=== PATIENT | female | born 2005 ===

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

== ENCOUNTER 2024-10-17 21:32 | Emergency (ER) | payer OTHER, SELFPAY ==
[2024-10-17 22:16] VITALS: BP 128/81; PULSE 125; RESP 20; TEMP 38.1; O2SAT 99; BMI 41.2
[2024-10-17 22:33] LABS: MANUAL DIFF FLAG NO
[2024-10-17 22:34] LABS: Basophils Percent Auto 0.1 % (0-2); Eosinophils Percent Auto 0.3 % (0-4); Hematocrit 43.1 % (37.0-47.0); Hemoglobin 14.1 g/dl (12.0-16.0); Imm Gran Abs Auto 0.03 X10*3/uL (0.00-0.03); Imm Gran Pct Auto 0.4 % (0.0-0.4); Lymphocytes Percent Auto 12.4 % (20-40); Mean Corpuscular HGB Conc 32.7 g/dl (31.0-35.0); Mean Corpuscular Hemoglobin 26.1 pg (27.0-33.0); Mean Corpuscular Volume 79.8 fL (80.0-98.0); Mean Platelet Volume 9.2 fL (9.4-12.3); Monocytes Absolute Auto 0.6 X10*3/uL (0.1-1.2); Monocytes Percent Auto 7.8 % (2-11); Neutrophils Absolute Auto 6.1 x10*3/uL (2.0-8.3); Platelet Count 276 X10*3/uL (160-400); Red Cell Distribution Width 13.2 % (11.0-16.0); White Blood Count 7.7 X10*3/uL (4.8-10.8)
[2024-10-17 22:51] LABS: Alanine Aminotransferase 30 U/L (0-31); Albumin Level 4.5 g/dL (3.5-5.0); Alkaline Phosphatase 68 U/L (39-117); Anion Gap 15 (12-20); Aspartate Amino Transferase 15 U/L (5-31); Bilirubin Total 0.5 mg/dL (0.0-1.0); Blood Urea Nitrogen 13 mg/dL (9-16); Calcium 8.9 mg/dL (8.4-10.2); Carbon Dioxide 23 mmol/L (22-29); Chloride 104 mmol/L (96-108); Creatinine Clr Calc Pharmacy 127.2; Estimated Glomerular Filt Rate > 60; Glucose Random 112 mg/dL (60-115); Lipase 9 U/L (8-78); Potassium 3.7 mmol/L (3.3-5.1); Sodium 138 mmol/L (135-145)
[2024-10-17 23:10] LABS: Influenza A PCR NEGATIVE (Negative); Influenza B PCR NEGATIVE (Negative); Resp Syncy Virus RNA Qual PCR NEGATIVE (Negative); SARS COV2 PCR INHOUSE POSITIVE (Negative)
[2024-10-18 03:22] VITALS: BP 118/72; PULSE 110; RESP 14; TEMP 36.8; O2SAT 95
--- NOTE | 2024-10-18 04:00 | ED.NAVMDI ---
HPI - Nausea/Vomiting/Diarrhea General Chief complaint: Abdominal Pain Stated complaint: vomiting/fever Time Seen by Provider: 10/18/24 03:59 Source: patient and family (Mother) Mode of arrival: ambulatory Limitations: no limitations History of Present Illness ED Provider: Dr. Abdiaziz Ervin HPI Narrative: 19-year-old female with no significant past medical history who presents emergency department for evaluation nausea, vomiting, diarrhea, fever, chills, nonproductive cough, myalgias and arthralgias with symptoms starting 10/16/2024 (2 days prior to evaluation). Patient states she was not been able to eat any food or drink liquids since onset of her symptoms. She states she was had at least 6 episodes of emesis and too numerous to count episodes of diarrhea. She was not noticed any blood in the emesis or diarrhea. Patient states she was feeling weak and fatigued. Related Data Previous Rx's ?Medication ?Instructions ?Recorded ondansetron 4 mg disintegrating 4 mg PO Q6-8H PRN nausea and 12/16/23 tablet vomiting #7 tabs ondansetron 4 mg disintegrating 4 mg PO Q6-8H PRN nausea and 10/18/24 tablet vomiting #14 tabs Allergies Allergy/AdvReac Type Severity Reaction Status Date / Time No Known Allergies Allergy Verified 10/17/24 22:19 Review of Systems Review of Systems: Yes all other systems are reviewed and are negative [facility] Past Medical History [facility] Narrative: Social history: She denies tobacco, alcohol and drug use. Social History Social History Alcohol intake: never Smoked in Last 30 Days: No Use of substances other than those prescribed or required for medical reasons: No Advance Directives: No Advance Directives Information Provided: Yes Do you have a plan to hurt others: No Plan Patient : No Physical Exam Vital Signs: Vital Signs: Last Vital Signs Temp 98.7 F 10/18/24 05:28 Pulse 100 10/18/24 05:28 Resp 20 10/18/24 05:28 BP 93/49 L 10/18/24 05:28 Pulse Ox 98 10/18/24 05:28 O2 Del Method Room Air 10/18/24 05:28 BMI result Body Mass Index 41.2 Vital signs revealed an elevated heart rate of 110 otherwise unremarkable Exam: General: Awake, alert in no distress Head: Normocephalic, atraumatic EENT: PERRL, Lids normal, sclera normal, conjunctiva normal, nose normal , ears normal, throat without erythema or exudates Neck: Supple, no adenopathy Lung: breath sounds symmetric, no wheezing, rales or rhonchi Chest: symmetric movement, nontender Heart: regular rate and rhythm, normal S1, S2 no murmurs or rubs Abdomen: soft, non-tender, nondistended, normal bowel sounds Back: no vertebral tenderness, no CVAT Extremities: no deformities, moves all extremities symmetrically Neuro: Awake, alert, oriented, normal speech, cranial nerves intact, moves all extremities symmetrically Psych: Pleasant, cooperative Medications Administered Discontinued Medications Generic Name Dose Route Start Last Admin Trade Name Freq PRN Reason Stop Dose Admin Diphenhydramine HCl 50 mg 10/18/24 04:18 10/18/24 04:32 Diphenhydramine Hcl 50 Mg/Ml Vial IVPUSH 10/18/24 04:19 50 mg ONCE STA Administration Sodium Chloride 1,000 mls @ 999 mls/hr 10/18/24 04:18 10/18/24 04:28 Ns IV 10/18/24 05:18 999 mls/hr .Q1H1M STA Administration Ketorolac Tromethamine 15 mg 10/18/24 04:18 10/18/24 04:32 Ketorolac Tromethamine 15 Mg/Ml Vial IVPUSH 10/18/24 04:19 15 mg ONCE STA Administration Loperamide HCl 2 mg 10/18/24 04:23 10/18/24 04:32 Loperamide Hcl 2 Mg Capsule PO 10/18/24 04:24 2 mg ONCE ONE Administration Metoclopramide HCl 10 mg 10/18/24 04:18 10/18/24 04:32 Metoclopramide Hcl 10 Mg/2 Ml Vial IVPUSH 10/18/24 04:19 10 mg ONCE STA Administration Medical Decision Making Medical Decision Making [facility] Narrative: 19-year-old female with no significant past medical history who presents emergency department for evaluation nausea, vomiting, diarrhea, fever, chills, nonproductive cough, myalgias and arthralgias with symptoms starting 10/16/2024 (2 days prior to evaluation). Patient was had no food or fluid intake since onset of her symptoms . Vital signs revealed an elevated heart rate otherwise unremarkable. Physical examination was unremarkable. Differential diagnosis: ?Includes but is not limited to viral syndrome, COVID-19, influenza, RSV, electrolyte abnormalities, anemia Course: 04:23 The patient's COVID-19 test was positive which explains the patient's symptoms. The patient was had poor oral intake for 2 days therefore I ordered normal saline IV times 1 L. Patient was also treated with Reglan 10 mg IV, Benadryl 50 mg IV and Toradol 15 mg IV. 05:30 Patient felt significantly better after the above treatment. Patient was discharged home with a prescription for Zofran ODT 4 mg every 6-8 hours as needed for nausea and vomiting. She was advised to take Tylenol and ibuprofen for pain. She was also advised to take Imodium for her diarrhea. She was given printed and verbal instructions at the time of discharge. She was given a return to work note as well. Admission/Observation Consideration of admission/observation: Escalation of care including admission/observation considered (Yes) Lab Data MDM Lab Attestation statement: I reviewed the patient's lab results. My interpretation patient's laboratory evaluation is as follows: CBC was normal. CMP was normal. Urinalysis was positive for protein and leukocyte esterase. Influenza and RSV were negative. COVID-19 was positive. 10/17/24 22:28 10/17/24 22:28 Labs: Lab Results 10/17/24 10/18/24 Range/Units 22:28 04:04 WBC 7.7 (4.8-10.8) X10*3/uL RBC 5.40 (4.20-5.50) X10*6/uL Hgb 14.1 (12.0-16.0) g/dl Hct 43.1 (37.0-47.0) % MCV 79.8 L (80.0-98.0) fL MCH 26.1 L (27.0-33.0) pg MCHC 32.7 (31.0-35.0) g/dl RDW 13.2 (11.0-16.0) % Plt Count 276 (160-400) X10*3/uL MPV 9.2 L (9.4-12.3) fL Immature Gran % (Auto) 0.4 (0.0-0.4) % Neut % (Auto) 79.0 H (45-73) % Lymph % (Auto) 12.4 L (20-40) % [place] % (Auto) 7.8 (2-11) % Eos % (Auto) 0.3 (0-4) % Baso % (Auto) 0.1 (0-2) % Lymph # (Auto) 1.0 L (1.2-4.9) X10*3/uL [place] # (Auto) 0.6 (0.1-1.2) X10*3/uL Eos # (Auto) 0.0 (0.0-0.4) X10*3/uL Baso # (Auto) 0.0 (0.0-0.2) X10*3/uL Abs Immat Gran (auto) 0.03 (0.00-0.03) X10*3/uL Absolute Neuts (auto) 6.1 (2.0-8.3) x10*3/uL Absolute Nucleated RBC 0.000 (0.0-0.012) X10*3/uL Nucleated RBC % (auto) 0.0 (0.0-0.2) /100WBC Sodium 138 (135-145) mmol/L Potassium 3.7 (3.3-5.1) mmol/L Chloride 104 (96-108) mmol/L Carbon Dioxide 23 (22-29) mmol/L Anion Gap 15 (12-20) BUN 13 (9-16) mg/dL Creatinine 0.79 (0.5-1.4) mg/dL Estim Creat Clear Calc 127.2 Estimated GFR > 60 Random Glucose 112 (60-115) mg/dL Calcium 8.9 (8.4-10.2) mg/dL Total Bilirubin 0.5 (0.0-1.0) mg/dL AST 15 (5-31) U/L ALT 30 (0-31) U/L Alkaline Phosphatase 68 (39-117) U/L Total Protein 8.0 (6.5-8.0) g/dL Albumin 4.5 (3.5-5.0) g/dL Lipase 9 (8-78) U/L Urine Color Yellow Urine Appearance Cloudy Urine pH 5.5 (5.0-9.0) Ur Specific [place] 1.025 (1.005-1.025) Urine Protein 30 (1+) H (Neg-Trace) mg/dL Urine Glucose (UA) Negative (Negative) mg/dL Urine Ketones Trace (Negative) mg/dL Urine Blood Negative (Negative) Urine Nitrite Negative (Negative) Ur Leukocyte Esterase Small (1+) H (Negative) Urine RBC 0-2 (0-2) /HPF Urine WBC 6-10 (0-5) /HPF Ur Squamous Epith Cells >20 (0-2) /HPF Urine Bacteria 4+ (None Seen) Hyaline Casts 0-2 (0-2) /LPF Influenza Type A (PCR) NEGATIVE (Negative) Influenza Type B (PCR) NEGATIVE (Negative) RSV RNA Qual (PCR) NEGATIVE (Negative) SARS-CoV-2 RNA (RT-PCR) POSITIVE A (Negative) Prescription Management I considered prescription management with: Other (Antiemetic: Zofran) Discharge Plan Discharge Clinical Impression: COVID-19 virus infection, Acute dehydration Nausea & vomiting Qualifiers: Vomiting type: unspecified Qualified Code(s): R11.2 - Nausea with vomiting, unspecified Diarrhea Qualifiers: Diarrhea type: unspecified type Qualified Code(s): R19.7 - Diarrhea, unspecified Patient Disposition: Home, Self-Care Instructions: COVID-19 (Coronavirus Disease 2019) (ED) Additional Instructions: Your blood work was unremarkable. Your RSV and influenza tests were negative. Your COVID-19 test was positive. Your symptoms are consistent with COVID-19 viral infection. Take Zofran ODT 4 mg pills, 1 pill dissolved in your mouth every 8 hours as needed for nausea and vomiting. For diarrhea I want you to take Imodium 2 mg pills. ?Take 2 pills after the 1st loose, diarrheal stool then 1 pill after each loose, diarrheal stool up to 8 pills per day. ?This usually stops diarrhea within 24 hours. Take ibuprofen 200 mg pills, 2 pills every 6 hours as needed for pain or fever. Take Tylenol (acetaminophen) 500 mg pills, 2 pills every 6 hours as needed for pain or fever. For the next 24 hours, stay on a ROSA MARIA diet (bananas, rice, applesauce, tea and toast). Follow-up with your doctor in 2 days. Please return to the emergency department if your symptoms get worse or if you develop any symptoms that are concerning to you. Please see the return to work note Prescriptions: New ondansetron 4 mg tablet,disintegrating 4 mg PO Q6-8H PRN (Reason: nausea and vomiting) Qty: 14 0RF No Action ondansetron 4 mg tablet,disintegrating 4 mg PO Q6-8H PRN (Reason: nausea and vomiting) Qty: 7 0RF Stand Alone Forms: Work/School Release Print Language: Frisian
[2024-10-18 04:12] LABS: Appearance Urine Cloudy; Color Urine Yellow; Glucose Urine UA Negative (Negative); Leukocyte Esterase Urine Small (1+) (Negative); Nitrite Urine Negative (Negative); PH 5.5 (5.0-9.0); Specific Gravity - Urine 1.025 (1.005-1.025); UMIC TRIGGER UACC YES; Urine Blood Negative (Negative); Urine Ketones Trace mg/dL (Negative); Urine Protein 30 (1+) mg/dL (Neg-Trace)
[2024-10-18 04:20] LABS: Bacteria Urine 4+ (None Seen); Hyaline Casts Urine 0-2 /LPF (0-2); RBC Urine 0-2 /HPF (0-2); Squamous Epithelial Cell Urine >20 /HPF (0-2); UACC Culture Trigger YES
[2024-10-18 04:28] VITALS: BP 121/66; PULSE 104; RESP 19; TEMP 37.3; O2SAT 99
[2024-10-18] MEDS: 0.9 % Sodium Chloride 1,000 ML 999 ML IV (04:28)
[2024-10-18] MEDS: Metoclopramide HCl 10 MG/2 ML VIAL IVPUSH (04:32)
[2024-10-18] MEDS: Ketorolac Tromethamine 15 MG/ML VIAL IVPUSH (04:32)
[2024-10-18] MEDS: diphenhydrAMINE HCL 50 MG/ML VIAL IVPUSH (04:32)
[2024-10-18] MEDS: Loperamide HCl 2 MG CAPSULE PO (04:32)
[2024-10-18 05:28] VITALS: BP 93/49; PULSE 100; RESP 20; TEMP 37.1; O2SAT 98
[2024-10-18 05:33] VITALS: BP 93/49; PULSE 100; RESP 20; TEMP 37.1; O2SAT 98
== END 2024-10-18 05:38 | disposition home or self-care (01) ==
PROVIDERS: Emergency Provider Emergency Medicine Emergency Medical Services
DX: U07.1 COVID-19 (principal); E86.0 Dehydration; R11.2 Nausea with vomiting, unspecified; R10.2 Pelvic and perineal pain; Z79.899 Other long term (current) drug therapy
CPT/HCPCS: 0241U; 80053; 81001; 83690; 85025; 87086; 96361; 96374; 96375; 99284; 99285; J1200; J1885; J2765

== ENCOUNTER 2025-10-03 17:49 | Emergency (ER) | payer OTHER, SELFPAY ==
--- NOTE | ~2025-10-03 | XR_ITS ---
CLINICAL HISTORY: cough, fever One-view chest x-ray Comparison: None Findings: No consolidation. There is mild increase of interstitial lung markings bilaterally. Heart size is normal. No acute fracture. IMPRESSION: Mild increase of interstitial lung markings could represent reactive airway disease or viral infection. No consolidation is noted. This document has been electronically signed by: Arnoldo Barcenas MD on 10/03/2025 20:00:07
[2025-10-03 19:09] VITALS: BP 131/81; PULSE 134; RESP 22; TEMP 38.1; O2SAT 97; BMI 43.0
--- NOTE | 2025-10-03 19:09 | ED_ITS ---
HPI - General Adult General Chief complaint: Upper Respiratory Symptoms Stated complaint: Flu like symptoms Time Seen by Provider: 10/03/25 21:15 Source: patient Mode of arrival: ambulatory Limitations: no limitations History of Present Illness ED Provider: Romel POON HPI narrative: The patient is a 20-year-old female presenting to the ED for evaluation of one day of sinus congestion, rhinorrhea, and an intermittent, occasionally painful, wet sounding but mostly nonproductive cough. She notes chest discomfort only while coughing; no chest pain at rest. She has taken ibuprofen (Advil) this morning with some relief but has taken no other medications. She denies vomiting, headache, hemoptysis, hematuria, dysuria, or recent trauma. No known sick contacts at home; she works at [employer] and is exposed to the public. Related Data Previous Rx's ?Medication ?Instructions ?Recorded ondansetron 4 mg disintegrating 4 mg PO Q6-8H PRN naus ea and 12/16/23 tablet vomiting #7 tabs ondansetron 4 mg disintegrating 4 mg PO Q6-8H PRN naus ea and 10/18/24 tablet vomiting #14 tabs Allergies Allergy/AdvReac Type Severity Reaction Status Date / Time No Known Allergies Allergy Verified 10/03/25 19:10 Review of Systems 2 Review of Systems: Yes all other systems are reviewed and are negative PMFSH Social History Social History Alcohol intake: never Advance Directives: No Advance Directives Information Provided: No Do you have a plan to hurt others: No Plan Physical Exam ED Vital Signs: Vital Signs - 24 hr 10/03/25 19:09 10/03/25 21:58 Temperature 100.6 F H 98.1 F Pulse Rate 134 H 107 H Respiratory Rate 22 H 16 Blood Pressure 131/81 121/73 Pulse Oximetry 97 95 Oxygen Delivery Method Room Air Room Air BMI result Body Mass Index 43.0 CONSTITUTIONAL: The patient appears non-toxic, well nourished and in no acute distress. Vital signs as documented. HEAD: Atraumatic, normocephalic. EYES: EOMs grossly intact, pupils equal, conjunctiva clear, no exudate. ENT: Nares patent, no discharge. Airway patent, no audible stridor, visible mucosa is pink and moist without noted lesions. Posterior pharynx demonstrates midline nonedematous uvula, no tonsillar or peritonsillar swelling, no tonsillar exudate. NECK: Trachea is midline, no obvious masses or gross abnormalities. CHEST: Symmetric movement, normal appearance. LUNGS: LS present and CTAB, no w/r/r. Non-labored work of breathing. CARDIAC: Regular Rhythm, S1/S2 appreciated, no murmurs, rubs or gallops. ABDOMEN: Abdomen soft and non-tender x4 quadrants, no palpable masses or organomegaly. : Deferred. EXTREMITIES: Normal tone, moves all extremities spontaneously without reported pain. No obvious acute injury or deformity noted. NEURO: Alert and oriented x3, CN II-XII appear grossly intact. Cerebellar Functioning grossly intact. No obvious sensory or motor deficits. Speech clear and appropriate. PSYCH: normal affect, appropriate eye contact, fluid speech, with appropriate response to questioning. No reported suicidality or homicidality. SKIN: Warm, dry, color appropriate, normal turgor. No rashes noted. Course Course Course Narrative: Tiffany Morris MD 10/03/25 1909 pt at work c/o fever 100.5, did not take any meds c/o sob, pain with breathing, productive cough, runny nose, head ache, no hx asthma started yesterday, worse today no sick contacts took advil migraine at 11am today HR 133, temp 100.6 oral BP in triage 171/95 , rechecked within 5 min, second BP 135/91 tylenol and motrin given 19:20 Medications Administered Discontinued Medications Generic Name Dose Route Start Last Admin Trade Name Chayq PRN Reason Stop Dose Admin Acetaminophen 975 mg 10/03/25 19:16 10/03/25 19:21 Acetaminophen 325 Mg Tablet PO 10/03/25 19:17 975 mg ONCE ONE Administration Ibuprofen 600 mg 10/03/25 19:16 10/03/25 19:22 Ibuprofen 600 Mg Tablet PO 10/03/25 19:17 600 mg ONCE ONE Administration Medical Decision Making Medical Decision Making [facility] Narrative: 9:54 PM 10/03/2025 (Sherwin POON): The patient is a 20-year-old female presenting to the ED for evaluation of one day of sinus congestion, rhinorrhea, and an intermittent, occasionally painful, wet sounding but mostly nonproductive cough. She notes chest discomfort only while coughing; no chest pain at rest. She has taken ibuprofen (Advil) this morning with some relief but has taken no other medications. She denies vomiting, headache, hemoptysis, hematuria, dysuria, or recent trauma. No known sick contacts at home; she works at [employer] and is exposed to the public. Patient's exam is reassuring, no adventitious lung sounds. The patient arrived to the ED tachycardic with temperature of 100.6 degrees, received ibuprofen and Tylenol during triage process. Laboratory evaluation shows mild leukocytosis of 12.2, no anemia, significant electrolyte abnormality, or JONATHAN. The patient's potassium is mildly low at 3.2, we will treat with oral repletion. Patient's viral swabs are negative for influenza, RSV, and COVID. The patient's chest x-ray shows interstitial lung markings consistent with a reactive airway disease, however there is no focal consolidation. The patient appears to be suffering from a viral URI. At time of this provider's exam the patient appears nontoxic, heart rate is improved, we will recheck vital signs and if improved patient will be discharged with supportive care. 10:07 PM 10/03/2025 (Sherwin POON): The patient is vital signs have markedly improved, heart rate is improved, fever has resolved, respiratory rate is improved, patient remains normotensive. The patient is tolerating p.o. and will be encouraged to hydrate, patient will be discharged with supportive care. Admission/Observation Consideration of admission/observation: Escalation of care including admission/observation considered Lab Data MDM Lab Attestation statement: I reviewed the patient's lab results. 10/03/25 20:03 10/03/25 20:03 Labs: Lab Results 10/03/25 Range/Units 20:03 WBC 12.2 H (4.8-10.8) X10*3/uL RBC 5.19 (4.20-5.50) X10*6/uL Hgb 13.6 (12.0-16.0) g/dl Hct 41.0 (37.0-47.0) % MCV 79.0 L (80.0-98.0) fL MCH 26.2 L (27.0-33.0) pg MCHC 33.2 (31.0-35.0) g/dl RDW 12.7 (11.0-16.0) % Plt Count 294 (160-400) X10*3/uL MPV 9.8 (9.4-12.3) fL Immature Gran % (Auto) 0.5 H (0.0-0.4) % Neut % (Auto) 83.0 H (45-73) % Lymph % (Auto) 11.4 L (20-40) % Bent % (Auto) 3.5 (2-11) % Eos % (Auto) 1.3 (0-4) % Baso % (Auto) 0.3 (0-2) % Lymph # (Auto) 1.4 (1.2-4.9) X10*3/uL Bent # (Auto) 0.4 (0.1-1.2) X10*3/uL Eos # (Auto) 0.2 (0.0-0.4) X10*3/uL Baso # (Auto) 0.0 (0.0-0.2) X10*3/uL Abs Immat Gran (auto) 0.06 H (0.00-0.03) X10*3/uL Absolute Neuts (auto) 10.1 H (2.0-8.3) x10*3/uL Absolute Nucleated RBC 0.000 (0.0-0.012) X10*3/uL Nucleated RBC % (auto) 0.0 (0.0-0.2) /100WBC Sodium 137 (135-145) mmol/L Potassium 3.2 L (3.3-5.1) mmol/L Chloride 103 (96-108) mmol/L Carbon Dioxide 25 (22-29) mmol/L Anion Gap 12 (12-20) BUN 9 (9-16) mg/dL Creatinine 0.62 (0.5-1.4) mg/dL Estim Creat Clear Calc 164.6 Estimated GFR > 60 Random Glucose 151 H (60-115) mg/dL Calcium 9.6 D (8.4-10.2) mg/dL Influenza Type A (PCR) NEGATIVE (Negative) Influenza Type B (PCR) NEGATIVE (Negative) RSV RNA Qual (PCR) NEGATIVE (Negative) SARS-CoV-2 RNA (RT-PCR) NEGATIVE (Negative) Radiology Impression Discussion of test interpretation with radiology: I have reviewed the radiologist's reading. Radiologist Impression: One-view chest x-ray Comparison: None Findings: No consolidation. There is mild increase of interstitial lung markings bilaterally. Heart size is normal. No acute fracture. IMPRESSION: Mild increase of interstitial lung markings could represent reactive airway disease or viral infection. No consolidation is noted. This document has been electronically signed by: Arnoldo Barcenas MD on 10/03/2025 20:00:07 External Record Review External record reviewed: Outpatient record and Prior outpatient labs Prescription Management I considered prescription management with: Pain Medication and Antibiotic Discharge Plan Discharge Clinical Impression: Upper respiratory infection Patient Disposition: Home, Self-Care Instructions: Upper Respiratory Infection (ED), Viral Syndrome (ED) Additional Instructions: Thank you for choosing [facility] for your care today. Thankfully your laboratory evaluation, chest x-ray, viral swabs, exam, and vital signs today are reassuring. At this time there is no indication for admission to the hospital or continued ED observation, and it is safe to discharge you home. You are likely suffering from a viral upper respiratory infection. There is no indication for antibiotics at this time. You should take alternating (staggered) doses of ibuprofen 600mg and Tylenol 1000mg every 4 hours as needed for any additional pain. Please stay well hydrated and get plenty of rest. Please follow up with your primary care physician for re-evaluation, additional management of your symptoms, and continued preventative care. If you do not have a primary care physician, please call the [facility] at [phone] to establish a new primary care physician. While waiting to establish your new primary care physician, you can call our [facility] at [phone] for non-emergency needs. Please return to the emergency department if you develop a severe or sudden change in your symptoms, a fever over 100.4 that does not improve with Tylenol or Ibuprofen, recurrent vomiting, or any other new or worsening symptoms or concerns. Prescriptions: No Action ondansetron 4 mg tablet,disintegrating 4 mg PO Q6-8H PRN (Reason: nausea and vomiting) Qty: 7 0RF ondansetron 4 mg tablet,disintegrating 4 mg PO Q6-8H PRN (Reason: nausea and vomiting) Qty: 14 0RF Print Language: [place]
[2025-10-03 20:12] LABS: MANUAL DIFF FLAG NO
[2025-10-03 20:13] LABS: Hematocrit 41.0 % (37.0-47.0); Hemoglobin 13.6 g/dl (12.0-16.0); Imm Gran Abs Auto 0.06 X10*3/uL (0.00-0.03); Imm Gran Pct Auto 0.5 % (0.0-0.4); Lymphocytes Absolute Auto 1.4 X10*3/uL (1.2-4.9); Mean Corpuscular HGB Conc 33.2 g/dl (31.0-35.0); Mean Corpuscular Hemoglobin 26.2 pg (27.0-33.0); Mean Corpuscular Volume 79.0 fL (80.0-98.0); NRBC Abs Auto 0.000 X10*3/uL (0.0-0.012); NRBC Pct Auto 0.0 /100WBC (0.0-0.2); Platelet Count 294 X10*3/uL (160-400); Red Blood Count 5.19 X10*6/uL (4.20-5.50); White Blood Count 12.2 X10*3/uL (4.8-10.8)
[2025-10-03 20:33] LABS: Anion Gap 12 (12-20); Blood Urea Nitrogen 9 mg/dL (9-16); Calcium 9.6 mg/dL (8.4-10.2); Carbon Dioxide 25 mmol/L (22-29); Chloride 103 mmol/L (96-108); Creatinine Clr Calc Pharmacy 164.6; Estimated Glomerular Filt Rate > 60; Potassium 3.2 mmol/L (3.3-5.1); Sodium 137 mmol/L (135-145)
[2025-10-03 20:55] LABS: Resp Syncy Virus RNA Qual PCR NEGATIVE (Negative); SARS COV2 PCR INHOUSE NEGATIVE (Negative)
--- OUTSIDE RECORDS SUMMARY | 2025-10-03 21:10 | XMS_ITS ---
Author Name [facility] Organization Unknown Care Team Organization Name Specialty Phone Email Start Date End Da sandoval [facility] 08/18/2023 024
[2025-10-03 21:58] VITALS: BP 121/73; PULSE 107; RESP 16; TEMP 36.7; O2SAT 95
[2025-10-03 22:25] VITALS: BP 121/73; PULSE 107; RESP 16; TEMP 36.7; O2SAT 95
== END 2025-10-03 22:25 | disposition home or self-care (01) ==
PROVIDERS: Emergency Medicine; Emergency Provider Emergency Medicine
DX: J06.9 Acute upper respiratory infection, unspecified (principal); R05.9 Cough, unspecified; R50.9 Fever, unspecified
CPT/HCPCS: 71045; 80048; 85025; 87637; 99283

== ENCOUNTER → 2025-10-03 19:12 | Outpatient (BNV) | payer OTHER, SELFPAY | PROVIDERS: Visit Provider Nuclear Medicine | DX: R05.9 Cough, unspecified (principal); R50.9 Fever, unspecified | CPT/HCPCS: 71045 ==